=== PATIENT | female | born 1980 | race Caucasian/White ===

== ENCOUNTER 2021-09-10 11:17 | Emergency (ER) | payer SELFPAY ==
--- NOTE | 2021-09-10 11:23 | ED General ---
General Stated Complaint: PINWORM EXPOSURE Source of Information: Patient Exam Limitations: No Limitations (KANDY WRAY APRN) History of Present Illness Date Seen by Provider: Sep 10, 2021 Time Seen by Provider: 11:21 Initial Comments To ER with reports of pinworm exposure by friends. She arrives here with another gentleman. She believes that she has pinworms in the skin on her face and it would like a skin graft. Timing/Duration: 1-2 Days Severity: Moderate Associated Systoms: Denies Symptoms (KANDY WRAY APRN) Allergies and Home Medications Patient Home Medication List Home Medication List Reviewed: Yes (KANDY WRAY APRN) Review of Systems Review of Systems Constitutional: see HPI EENTM: see HPI Respiratory: no symptoms reported Cardiovascular: no symptoms reported Genitourinary: no symptoms reported Musculoskeletal: no symptoms reported Skin: no symptoms reported Psychiatric/Neurological: No Symptoms Reported Hematologic/Lymphatic: No Symptoms Reported (KANDY WRAY APRN) Physical Exam Vital Signs Capillary Refill : (KANDY WRAY APRN) Height, Weight, BMI Height: '" Weight: lbs. oz. kg; BMI Method: General Appearance: No Apparent Distress, WD/WN, Other (Unable to sit still, believes she has pinworms in the skin on her face and she would like me to do a skin graft. She denies any methamphetamine use but appears to be under the influence of a stimulant. She then advises the nurse that she should prieto me for suggesting that she uses methamphetamine) Eyes: Bilateral Eye Normal Inspection, Bilateral Eye PERRL, Bilateral Eye EOMI HEENT: PERRL/EOMI, Normal ENT Inspection Neck: Full Range of Motion, Normal Inspection Respiratory: No Accessory Muscle Use, No Respiratory Distress Extremity: Normal Capillary Refill, Normal Inspection Neurologic/Psychiatric: Alert, Oriented x3 Skin: Normal Color, Warm/Dry (KANDY WRAY APRN) Progress/Results/Core Measures Suspected Sepsis SIRS Temperature: Pulse: Respiratory Rate: Blood Pressure / Mean: (KANDY WRAY APRN) Results/Orders Vital Signs/I&O Capillary Refill : (KANDY WRAY APRN) Departure Impression Primary Impression: Delusions of parasitosis Additional Impression: Pinworm exposure Disposition: 01 HOME, SELF-CARE Condition: Stable Departure-Patient Inst. Decision time for Depature: 11:21 (KANDY WRAY APRN) Referrals: NO,LOCAL PHYSICIAN (PCP) Primary Care Physician Patient Instructions: Pinworms Add. Discharge Instructions: 1. Return to ER for any concerns. Go to [facility] and get [facility] Pinworm Medicine over the counter and take as directed. Keep fingernails trimmed. ATTENDING PHYSICIAN NOTE: I was physically present as attending physician in the emergency department during the care of this patient, but I was not directly involved in the decision making or delivery of care for this patient. (CATALINA AMBROSIO MD) KANDY WRAY APRN Sep 10, 2021 11:23 CATALINA AMBROSIO MD Sep 10, 2021 13:16
== END 2021-09-10 11:25 | disposition left against medical advice (07) ==
LOC: ER 11:19
DX: F22 Delusional disorders (principal); Z11.6 Encounter for screening for other protozoal diseases and helminthiases